=== PATIENT | female | born 1985 | race Caucasian/White ===

== ENCOUNTER → 2020-05-15 10:11 | Outpatient (CLI) | payer OTHER, SELFPAY ==
--- NOTE | ~2020-05-15 | XR_ITS ---
EXAMINATION: XR cervical spine min 6V EXAM DATE: 05/15/2020 10:40 INDICATION: M54.2 - Cervicalgia . Chronic neck pain. TECHNIQUE: Cervical spine frontal, lateral, lateral swimmers, submental vertex and open-mouth odonto id projections. Additional lateral flexion and lateral extension projections obtained. Bilateral obl ique projections also obtained. There are no prior studies for comparison. FINDINGS: There is mild reversal of the normal cervical lordosis which may be positional or spasm. T here is 2 mm anterolisthesis C4 on C5 on the flexion, 1-2 mm retrolisthesis C2 on C3, C3 on C4 and C4 on C5 on the extension projections. No more than mild cervical arthropathy, without appreciable neur al foraminal stenosis. There is no evidence of acute cervical fracture. The odontoid process is inta ct. Pre-dens space is normal. Prevertebral soft tissue is normal. There are no soft tissue abnorma lities identified. Vertebral body and disc heights are well-maintained. IMPRESSION: 1. Reversal of normal cervical lordosis. 2. Mild cervical arthropathy. Reviewed, dictated and finalized at location A. LE LOOM SETTER
== END ==
PROVIDERS: PCP Nurse Practitioner Family; Visit Provider Nurse Practitioner Family
DX: M54.2 Cervicalgia (principal)
CPT/HCPCS: 72052

== ENCOUNTER 2020-12-14 11:13 | Outpatient (CLI) | payer OTHER, SELFPAY ==
[2020-12-14 11:28] LABS: Hematocrit 37.7 % (37.0-47.0); Hemoglobin 12.6 g/dL (12.0-15.0); Mean Corpuscular HGB Conc 33.4 g/dl (32-36); Mean Corpuscular Hemoglobin 31.3 pg (26-34); Mean Corpuscular Volume 93.8 fl (80-100); Mean Platelet Volume 10.1 fl (7.4-10.4); Platelet Count Result 263 k/mm3 (150-375); Red Blood Count 4.02 M/mm3 (4.2-5.4); Red Cell Distribution Width 11.8 % (11.5-14.5); White Blood Count 5.7 K/mm3 (4.5-10.0)
[2020-12-14 12:39] LABS: Iron 66 ug/dL (37-170)
[2020-12-14 12:43] LABS: Alanine Aminotransferase 24 U/L (4-35); Alkaline Phosphatase 46 U/L (38-126); Anion Gap 11 mmol/L (8-16); Aspartate Amino Transferase 57 U/L (14-36); Bilirubin,Total 0.2 mg/dL (0.2-1.3); Blood Urea Nitrogen 12 mg/dL (7-17); Calcium 9.5 mg/dL (8.4-10.2); Carbon Dioxide 24 mmol/L (22-30); Chloride 107 mmol/L (98-107); Estimated Glomerular Filt Rate > 60; Glucose 65 mg/dL (65-110); Sodium 142 mmol/L (137-145)
[2020-12-14 12:48] LABS: Percent Iron Saturation 18 % (20-50)
[2020-12-14 13:47] LABS: Folic Acid > 20.0 ng/mL (2.76->20)
== END 2020-12-14 11:14 | disposition home or self-care (01) ==
LOC: ANHLAB 11:15
PROVIDERS: PCP Family Medicine; Visit Provider Internal Medicine Hematology & Oncology
DX: D50.0 Iron deficiency anemia secondary to blood loss (chronic) (principal)
CPT/HCPCS: 36415; 80053; 82607; 82728; 82746; 83540; 83550; 85027

== ENCOUNTER 2022-01-04 09:03 | Outpatient (CLI) | payer OTHER, SELFPAY ==
[2022-01-04 09:57] LABS: T4 Thyroxine 6.48 ug/dL (5.53-11.0)
[2022-01-04 10:47] LABS: Folic Acid 11.4 ng/mL (2.76->20)
== END 2022-01-04 09:04 | disposition home or self-care (01) ==
LOC: ANHLAB 09:04
PROVIDERS: PCP Family Medicine; Visit Provider Nurse Practitioner Family
DX: R79.89 Other specified abnormal findings of blood chemistry (principal); D64.9 Anemia, unspecified
CPT/HCPCS: 36415; 82607; 82746; 84436; 84443

== ENCOUNTER 2022-04-18 11:22 | Emergency (ER) | payer OTHER, SELFPAY ==
[2022-04-18 11:33] VITALS: BP 110/64; PULSE 107; RESP 16; TEMP 37.5; O2SAT 99
--- NOTE | 2022-04-18 11:42 | ED.URI ---
HPI - URI/Sore Throat General Chief Complaint: Upper Respiratory Infection Stated Complaint: sorethroat,bilateral ear pain Time Seen by Provider: 04/18/22 11:42 Source: patient and RN notes reviewed Mode of arrival: ambulatory Limitations: no limitations History of Present Illness HPI Narrative: 36 year old female presents with 2 day onset of sore throat with associated myalgia, chills, right ear pain. Swallow has become increasingly more painful and now feels sinus pressure. Has taken ibuprofen and tylenol with mild alleviation of symptoms. 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 Maintaining secretions, Denies difficulty swallowing, n/v/c/d, wheezing, or shortness of breath. MD elicited complaint: cough Related Data Home Medications Medication Instructions Recorded Confirmed ascorbic acid (vitamin C) 500 mg 500 mg PO DAILY 07/24/21 04/18/22 capsule cholecalciferol (vitamin D3) 25 25 mcg PO DAILY 07/24/21 11/13/21 mcg (1,000 unit) capsule cyanocobalamin (vitamin B-12) 25 50 mcg PO DAILY 07/24/21 11/13/21 mcg tablet ferrous sulfate 325 mg (65 mg 325 mg PO DAILY 07/24/21 04/18/22 iron) tablet omeprazole magnesium 20 mg 20 mg PO DAILY 11/13/21 04/18/22 tablet,delayed release (Prilosec OTC) Allergies Allergy/AdvReac Type Severity Reaction Status Date / Time cefaclor Allergy Unknown Hives Verified 04/18/22 11:42 Review of Systems Review of Systems: CONSTITUTIONAL: Endorses malaise, chills, sweats. Denies fever EYES: Denies visual changes, redness, or discharge ENT: Reports sinus pain and sore throat. Denies rhinorrhea or nasal congestion CARDIOVASCULAR: Denies chest pain, palpitations, edema RESPIRATORY: Reports cough. 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 BMI 22.0-22.9, adult BMI 23.0-23.9, adult Chlamydia Heart palpitations Heartburn Shoulder pain, left Tobacco abuse counseling Surgical History Surgical History History of breast augmentation (~2004) History of cholecystectomy (~2011) History of elective (09/10/11) spina bifida History of knee surgery (~2000) Family History Family History Grandparent Diabetes mellitus Family history of lung cancer Cerebrovascular accident maternal grandmother Sibling Diabetes mellitus brother Social History Social History Social History: yes Smoking packs per day: 0.50 Smoking cigarettes per day: 10.0 Years smoked: 22 Smoking pack-years: 11.00 Smoking status: Current every day smoker Tobacco type: cigarettes Second hand tobacco smoke exposure: Yes Alcohol intake: current Drinks per week: 0 Alcohol use details: 1-2 drinks per month Substance use: never Substance use type: does not use Living arrangements: with family Additional living arrangements comments: Occupation/Education: occupation 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 HEAD: Normocephalic EYES: conjunctivae clear ENT: Mucous membranes moist. R TM pearly solis with dull light; L TM pearly solis with displaced cone of light yet appropriate bony landmarks; no tragal tenderness. Oropharynx erythematous with mild purulent exudate, grade III tonsillar enlargement
== END 2022-04-18 12:05 | disposition home or self-care (01) ==
PROVIDERS: Emergency Provider Nurse Practitioner Family; PCP Family Medicine
DX: J02.0 Streptococcal pharyngitis (principal); F17.210 Nicotine dependence, cigarettes, uncomplicated; R12 Heartburn; Z85.828 Personal history of other malignant neoplasm of skin
CPT/HCPCS: 87880; 99213; G0463

== ENCOUNTER → 2023-03-24 10:43 | Outpatient (CLI) | payer OTHER, SELFPAY ==
--- NOTE | ~2023-03-24 | XR_ITS ---
XR chest 2V DATE: 03/24/2023 10:56 INDICATION: Tobacco use TECHNIQUE: PA and lateral views COMPARISON: 05/28/2018 2 view chest FINDINGS: Bilateral hyperinflation. No pulmonary infiltrate or consolidation, pleural effusion or pul monary vascular congestion or pneumothorax. Normal heart size. No hilar or mediastinal enlargement. Surgical clips, right upper quadrant, likely due to cholecystectomy. IMPRESSION: Bilateral hyperinflation; no active cardiopulmonary disease Reviewed, dictated and finalized at location B. LY DINNER SERVICE SPECIALIST
== END ==
PROVIDERS: PCP Nurse Practitioner Family; Visit Provider Nurse Practitioner Family
DX: Z72.0 Tobacco use (principal)
CPT/HCPCS: 71046

== ENCOUNTER 2023-04-05 15:01 | Emergency (ER) | payer OTHER, SELFPAY ==
--- NOTE | 2023-04-05 15:21 | ED.GENADULT ---
HPI - General Adult General Chief complaint: Upper Respiratory Infection Stated complaint: congestion,bilateral ear pain Time Seen by Provider: 04/05/23 15:27 Source: patient, RN notes reviewed and old records reviewed Mode of arrival: ambulatory Limitations: no limitations History of Present Illness HPI narrative: [age] year old female presents to the [facility] with complaints of sinus congestion, bilateral ear pain worse on left than right since Friday, 4 days. Patient denies any fevers. Patient is scheduled for a PFT testing and wants to make sure she is okay for testing Denies fevers Reports taking Sudafed, Mya-Th[place]od[place] and ibuprofen Reports quit smoking 2 weeks ago Related Data Home Medications Medication Instructions Recorded Confirmed ascorbic acid (vitamin C) 500 mg 500 mg PO DAILY 07/24/21 04/05/23 capsule cholecalciferol (vitamin D3) 25 25 mcg PO DAILY 07/24/21 04/05/23 mcg (1,000 unit) capsule cyanocobalamin (vitamin B-12) 25 50 mcg PO DAILY 07/24/21 04/05/23 mcg tablet ferrous sulfate 325 mg (65 mg 325 mg PO DAILY 07/24/21 04/05/23 iron) tablet Allergies Allergy/AdvReac Type Severity Reaction Status Date / Time cefaclor Allergy Unknown Hives Verified 04/05/23 15:43 Review of Systems Review of Systems: All systems reviewed & are unremarkable except as noted in HPI and below Constitutional: Constitutional: Reports no additional constitutional complaints Eyes: Eyes: Reports no additional eye complaints ENT: Reports as per HPI Cardiovascular: Cardiovascular: Reports no additional cardiovascular complaints, Denies chest pain and Denies dyspnea Respiratory: Respiratory: Reports no additional respiratory complaints, Denies chest congestion, Denies cough and Denies dyspnea Gastrointestinal: Gastrointestinal: Reports no additional gastrointestinal complaints, Denies abdominal pain, Denies nausea and Denies vomiting Musculoskeletal: Musculoskeletal: Reports no additional musculoskeletal complaints Integumentary/Breasts: Skin/Breast: Reports system reviewed and no additional complaints, except as docu Neurologic: Reports system reviewed and no additional complaints, except as documented Psychiatric: Psychiatric: Reports no additional psychiatric complaints Allergic/Immunologic: Allergic/Immunologic: Reports no additional allergic/immunologic complaints PMFSH Past Medical History Medical History Abnormal serum iron level 2017 iron infusion treatment 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 Mother No problems noted. Social History Social History Social History: yes Smoking packs per day: 0.50 Smoking cigarettes per day: 10.0 Years smoked: 22 Smoking pack-years: 11.00 Smoking status: Current every day smoker Tobacco type: cigarettes Second hand tobacco smoke exposure: Yes Alcohol intake: current Drinks per week: 0 Alcohol use details: 1-2 drinks per month Substance use: never Substance use type: does not use Do You Feel Safe in your Home?: Yes Lack of Transportation: No Lack of Food: Never True Current Housing: I Have Housing Concerned About Future Housing: No Diffic
[2023-04-05 15:29] VITALS: BP 110/71; PULSE 90; RESP 18; TEMP 36.6; O2SAT 99
== END 2023-04-05 15:58 | disposition home or self-care (01) ==
PROVIDERS: Emergency Provider Nurse Practitioner; PCP Family Medicine
DX: J06.9 Acute upper respiratory infection, unspecified (principal); H65.03 Acute serous otitis media, bilateral; F17.210 Nicotine dependence, cigarettes, uncomplicated; Z85.828 Personal history of other malignant neoplasm of skin
CPT/HCPCS: 99211; G0463

== ENCOUNTER 2023-04-21 10:34 | Outpatient (CLI) | payer OTHER, SELFPAY ==
--- NOTE | 2023-04-21 13:36 | WPDPFTINT ---
PFT Procedure Performed PFT Procedure Performed Plethysmography (Lung Vol) Diffusing Cap (DLCO) Flow Vol Loop Spirometry w/o Bronchodil PFT Interpretation This is a pulmonary function test with spirometry, plethysmography and diffusing capacity. The test was performed and results interpreted in accordance with the 2019 and 2005 ATS/ERS Task Force guidelines respectively using the Global Lung Function Initiative-2012 reference equations. Patient demonstrated good effort and cooperation. Reproducibility criteria were met. The quality of the spirometry maneuver was Grade A. Findings: Spirometry: The contour the inspiratory and expiratory flow tracing are normal. The FVC is 4.48 L, 112% predicted. The FEV1 is 3.24 L, 99% predicted. The FEV1: FVC ratio 72%. Plethysmography: The total lung capacity is 5.72 L, 106% predicted. The functional residual capacity is 3.39 L, 113% predicted. The residual volume is 1.16 L, 69% predicted. Diffusing capacity: The diffusing capacity unadjusted for hemoglobin and carboxyhemoglobin is 24.9, 100% predicted. The diffusing capacity adjusted for alveolar volume is 4.75, 102% predicted. Impression: The spirometry is normal without evidence of an obstructive abnormality. The lung volumes are normal. The diffusing capacity is normal. There are no prior studies for comparison
== END 2023-04-21 10:35 | disposition home or self-care (01) ==
LOC: ANHPFT 10:35
PROVIDERS: PCP Family Medicine; Visit Provider Nurse Practitioner Family
DX: Z72.0 Tobacco use (principal); R09.89 Other specified symptoms and signs involving the circulatory and respiratory systems
CPT/HCPCS: 94375; 94726; 94729

== ENCOUNTER 2023-08-16 11:26 | Emergency (ER) | payer OTHER, SELFPAY ==
--- NOTE | 2023-08-16 11:32 | ED.URI ---
HPI - URI/Sore Throat General Chief Complaint: Upper Respiratory Infection Stated Complaint: Sore Throat/Ear Pain Time Seen by Provider: 08/16/23 12:02 Source: patient and RN notes reviewed Mode of arrival: ambulatory Limitations: no limitations History of Present Illness HPI Narrative: 38-year-old female presents concern for sore throat, ear pain started yesterday. She reports a few days ago she had postnasal drainage for that has resolved. She reports headache. Denies stomachache, and nasal congestion, rhinorrhea, fever, body aches, chills, sweats. MD elicited complaint: sore throat Related Data Home Medications Medication Instructions Recorded Confirmed ascorbic acid (vitamin C) 500 mg 500 mg PO DAILY 07/24/21 04/05/23 capsule cholecalciferol (vitamin D3) 25 25 mcg PO DAILY 07/24/21 04/05/23 mcg (1,000 unit) capsule cyanocobalamin (vitamin B-12) 25 50 mcg PO DAILY 07/24/21 04/05/23 mcg tablet ferrous sulfate 325 mg (65 mg 325 mg PO DAILY 07/24/21 04/05/23 iron) tablet Allergies Allergy/AdvReac Type Severity Reaction Status Date / Time cefaclor Allergy Unknown Hives Verified 04/05/23 15:43 Review of Systems Review of Systems: CONSTITUTIONAL: Denies malaise, chills, sweats, or fever. EYES: Denies visual changes, redness, or discharge. ENT: Denies rhinorrhea, congestion, sinus pain. Reports otalgia and sore throat. CARDIOVASCULAR: Denies chest pain, palpitations, or edema. RESPIRATORY: Denies cough. Denies dyspnea. GASTROINTESTINAL: Denies abdominal pain, nausea, vomiting, diarrhea SKIN: Denies rash or itching. MUSCULOSKELETAL: Denies myalgia. NEUROLOGIC: Reports headache. 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 Mother No problems noted. Social History Social History Social History: yes Smoking packs per day: 0.50 Smoking cigarettes per day: 10.0 Years smoked: 22 Smoking pack-years: 11.00 Smoking status: Current every day smoker Tobacco type: cigarettes Second hand tobacco smoke exposure: Yes Alcohol intake: current Drinks per week: 0 Alcohol use details: 1-2 drinks per month Substance use: never Substance use type: does not use Do You Feel Safe in your Home?: Yes Lack of Transportation: No Lack of Food: Never True Current Housing: I Have Housing Concerned About Future Housing: No Difficulty Paying Gas/Electric Bills: No Difficulty Paying for Meds: No Currently Unemployed: No Education: Bachelor's Degree Difficulty w/ Childcare or Family Care: No Living arrangements: with family Additional living arrangements comments: Occupation/Education: occupation 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 There is
[2023-08-16 11:46] VITALS: BP 102/66; PULSE 79; RESP 16; TEMP 37; O2SAT 99
== END 2023-08-16 12:13 | disposition home or self-care (01) ==
PROVIDERS: Emergency Provider Nurse Practitioner; PCP Family Medicine
DX: J02.0 Streptococcal pharyngitis (principal); F17.210 Nicotine dependence, cigarettes, uncomplicated; R12 Heartburn; Z85.3 Personal history of malignant neoplasm of breast
CPT/HCPCS: 87880; 99213; G0463

== ENCOUNTER 2024-02-13 15:45 | Emergency (ER) | payer BC, SELFPAY ==
--- NOTE | ~2024-02-13 | XR_ITS ---
XR chest 2V Ordering provider: Isaac Aguilar APRN History: 38 years Female with . productive cough, chest tightness, sob . Comparison: March 24, 2023 FINDINGS: MEDIASTINUM: The cardiac silhouette is not enlarged. LUNGS: No effusions or pneumothorax. Opacification the right lung base laterally is seen suggestive of pneumonia. OTHER: No free air under the diaphragm. IMPRESSION: Right basal pneumonia. Reviewed, dictated and finalized at location A. TRIC FORK OPERATOR IMPRESSION: Right basal pneumonia.
[2024-02-13 15:56] VITALS: BP 103/70; PULSE 81; RESP 16; TEMP 37.1; O2SAT 100
--- NOTE | 2024-02-13 16:21 | ED_ITS ---
HPI - URI/Sore Throat General Chief Complaint: Upper Respiratory Infection Stated Complaint: COUGH / Congestion / bodyaches Time Seen by Provider: 02/13/24 16:00 Source: patient Mode of arrival: ambulatory Limitations: no limitations History of Present Illness HPI Narrative: Malathi is a 38-year-old female patient presenting to the clinic today with complaints of cough, body aches, and chest congestion x3 days. She reports she is also having some chest tightness and shortness of breath at times. Denies any fever or chills. States her cough is productive with yellow phlegm. States her son had walking pneumonia 1-2 weeks ago MD elicited complaint: sore throat and nasal congestion Related Data Home Medications Medication Instructions Recorded Confirmed ascorbic acid (vitamin C) 500 mg 500 mg PO DAILY 07/24/21 02/13/24 capsule cholecalciferol (vitamin D3) 25 25 mcg PO DAILY 07/24/21 02/13/24 mcg (1,000 unit) capsule cyanocobalamin (vitamin B-12) 25 50 mcg PO DAILY 07/24/21 02/13/24 mcg tablet ferrous sulfate 325 mg (65 mg 325 mg PO DAILY 07/24/21 02/13/24 iron) tablet sertraline 100 mg tablet 150 mg PO DAILY 08/16/23 02/13/24 Allergies Allergy/AdvReac Type Severity Reaction Status Date / Time cefaclor AdvReac Mild Hives Verified 08/16/23 12:14 Review of Systems Review of Systems: Pertinent positives per HPI. Patient denies any fever, chills, rash, headache, visual changes, dizziness, chest pain, palpitations, nausea, vomiting, diarrhea, constipation, abdominal pain, or any urinary issues. 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 Mother No problems noted. Social History Social History Social History: yes Smoking packs per day: 0.50 Smoking cigarettes per day: 10.0 Years smoked: 22 Smoking pack-years: 11.00 Smoking status: Current every day smoker Tobacco type: cigarettes Second hand tobacco smoke exposure: Yes Alcohol intake: current Drinks per week: 0 Alcohol use details: 1-2 drinks per month Substance use: never Substance use type: does not use Do You Feel Safe in your Home?: Yes Lack of Transportation: No Lack of Food: Never True Current Housing: I Have Housing Concerned About Future Housing: No Difficulty Paying Gas/Electric Bills: No Difficulty Paying for Meds: No Currently Unemployed: No Education: Bachelor's Degree Difficulty w/ Childcare or Family Care: No Living arrangements: with family Additional living arrangements comments: Occupation/Education: occupation 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 There is no relevant family history pertinent to the patient complaint. Exam Narrative: General: Well-developed, well nourished, in no apparent distress Head: Normocephalic, atraumatic Eyes: Pupils equally round and reactive to light bilaterally, EOM intact, sclera and conjunctive clear, no discharge, lids normal Ears: TMs intact and clear, ear canals clear, no drainage, grossly hearing normal. Nose: Nares patent, no discharge, no inflammation, no sinus tenderness. Mouth: Oral pharynx without lesions or masses, good dentition, MMM. Neck: Supple, trachea midline, no enlargement of anterior or posterior cervical nodes, no thyroid masses or goiter palpable. Cardio: Regular rate and rhythm, s1 and s2 normal, no murmur appreciated. Resp: Diminished in the lower bases otherwise clear, no rhonchi, rales, wheezing or rubs Course Course Emergency Course: Portions of this record may have been created with voice recognition software. Level of Care: Express Care Visit Vital Signs Vital signs: Vital Signs Temperature 37.1 C 02/13/24 15:56 Pulse Rate 81 02/13/24 15:56 Respiratory Rate 16 02/13/24 15:56 Blood Pressure 103/70 02/13/24 15:56 Pulse Oximetry 100 02/13/24 15:56 Oxygen Delivery Room Air 02/13/24 15:56 Temperature 37.1 C 02/13/24 15:56 Pulse Rate 81 02/13/24 15:56 Respiratory Rate 16 02/13/24 15:56 Blood Pressure 103/70 02/13/24 15:56 Pulse Oximetry 100 02/13/24 15:56 Oxygen Delivery Room Air 02/13/24 15:56 Vital signs reviewed MDM - URI/Sore Throat MDM Narrative Medical decision making narrative: At the time of visit patient is resting comfortably on the exam table. Patient appears to be nontoxic. Diagnostics: X-ray shows right lower lobe pneumonia. Plan: Patient has right lower lobe pneumonia. Prescription for Augmentin and azithromycin as well as an albuterol inhaler was sent to the pharmacy. Supportive measures were discussed with the patient and they voiced understanding discharge instructions and agrees to treatment plan. Return precautions reviewed Differential Diagnosis Differential diagnosis: Likely upper respiratory infection, otitis media, sinusitis, viral infection, bronchitis, influenza, pharyngitis and other (COVID) Imaging Data Radiologist's impression: ITS Impressions Chest X-Ray 02/13/24 16:29 IMPRESSION: Right basal pneumonia. Discharge Plan Discharge Clinical Impression: Right lower lobe pneumonia Patient Disposition: Home, Self-Care Condition: Stable Instructions: Antibiotic Form, Pneumonia (ED) Additional Instructions: Chest x-ray shows right basilar pneumonia Take prescription medications only as prescribed-Augmentin and azithromycin Increase fluids and stay well hydrated Tylenol/motrin for pain/fever Flonase and OTC antihistamines as directed Vicks vapor rub to open sinuses Sinus rinses for congestion Cepacol spray, cough drops, throat lozenges, warm tea with honey/lemon, gargle salt water to soothe throat BRAT diet for diarrhea Clear liquids x 24 hours then advance as tolerated for nausea/vomiting Go to the ED if you develop a worsening in your condition- high fever not controlled by Tylenol or Motrin, dehydration, weakness, lethargy, shortness of breath, or chest pain. Follow up with your PCP in 3-5 days if symptoms persist. Prescriptions: New azithromycin 250 mg tablet See Rx Instructions .ROUTE .COMPLEX Qty: 6 0RF Rx Instructions: For 250 mg dose pack: take 500 mg today (day 1), then 250 mg for 4 days (days 2-5) amoxicillin-pot clavulanate 875-125 mg tablet 1 tablet PO Q12H 7 Days Qty: 14 0RF albuterol sulfate 90 mcg/actuation HFA aerosol inhaler 2 puff inhalation Q4-6H PRN (Reason: shortness of breath or wheezing) 30 Days Qty: 8.5 0RF No Action sertraline 100 mg tablet 150 mg PO DAILY Rx Instructions: psych manages ferrous sulfate 325 mg (65 mg iron) tablet 325 mg PO DAILY cholecalciferol (vitamin D3) 25 mcg (1,000 unit) capsule 25 mcg PO DAILY cyanocobalamin (vitamin B-12) 25 mcg tablet 50 mcg PO DAILY ascorbic acid (vitamin C) 500 mg capsule 500 mg PO DAILY Follow-up/Referrals: Александр Michelle MD [Primary Care Provider] - Time of Disposition: 16:37 Quality NIHSS Nursing Documentation ED NIHSS nursing documentation: reviewed/agree
== END 2024-02-13 16:46 | disposition home or self-care (01) ==
PROVIDERS: Emergency Provider Nurse Practitioner Family; PCP Family Medicine
DX: J18.1 Lobar pneumonia, unspecified organism (principal); F17.210 Nicotine dependence, cigarettes, uncomplicated; R12 Heartburn; Z85.3 Personal history of malignant neoplasm of breast
CPT/HCPCS: 71046; 99213; G0463

== ENCOUNTER 2024-10-15 08:20 | Outpatient (CLI) | payer OTHER, SELFPAY ==
--- OUTSIDE RECORDS SUMMARY | 2024-10-15 08:29 | XMS_ITS | Clinical Summary ---
Author Organization [facility] Address [address] [place] [address] Care Team Providers Care Social Insurance Specialist Name Role Phone Александр Michelle MD Primary Care Provider [phone] Allergies Active Allergy Reactions Criticality Noted Date Comments Cefaclor Hives High 12/14/2020 Medications ALPRAZolam (XANAX) 0.5 mg tablet TAKE 1 TABLET BY MOUTH EVERY DAY NEEDED 11/23/2020 Active sertraline (ZOLOFT) 100 mg tablet TAKE 2 TABLETS BY MOUTH EVERY DAY IN THE MORNING 11/23/2020 Active COVID-19 test specimen collect Misc TEST DIRECTED 12/03/2020 Active omeprazole (PriLOSEC) 20 mg Capsule, Delayed Release(E.C.) Take 20 mg by mouth daily. Active Active Problems Problem Noted Date Diagnosed Date Vitamin B12 deficiency (non anemic) 01/08/2021 Elevated liver enzymes 01/08/2021 Iron deficiency anemia 12/14/2020 Family History Medical History Relation Name Comments Diabetes Brother 3 Asthma Daughter Healthy Son Relation Name Status Comments Brother 1 Alive Brother 2 Alive Brother 3 Alive Daughter Alive Father Alive Mother Alive Son Alive Social History Tobacco Use Types Packs/Day Years Used Date Smoking Tobacco: Every Day Smokeless Tobacco: Never Alcohol Use Standard Drinks/Week Comments Yes 0 (1 standard drink = 0.6 oz pur e alcohol) Comments No Sex and Gender Information Value Date Recorded Sex Assigned at Not on file Legal Sex Female 3:45 PM CDT Gender Identity Not on file Sexual Orientation Not on file Last Filed Vital Signs Vital Sign Reading Time Taken Comments Blood Pressure 104/64 12/14/2020 10:36 AM CDT Pulse 86 12/14/2020 10:36 AM CDT Temperature 36.9 C (98.5 F) 12/14/2020 10:36 AM CDT Respiratory Rate - - Oxygen Saturation 97% 12/14/2020 10:36 AM CDT Inhaled Oxygen Concentration - - Weight 66 kg (145 lb 9.6 oz) 12/14/2020 10:36 AM CDT Height 167.6 cm (5' 6) 12/14/2020 10:36 AM CDT Body Mass Index 23.5 12/14/2020 10:36 AM CDT Plan of Treatment Health Maintenance Due Date Last Done Comments HPV VACCINES (1 - 3-dose series) 06/28/1998 HEPATITIS B VACCINES (1 of 3 - 19+ 3-dose series) 06/28/2002 07/02/2016, 12/21/2015, 11/16/2015 HPV/Cotest (21-29) 06/28/2004 CERVICAL CANCER SCREENING 06/28/2013 HPV/Cotest (30-65) 06/28/2013 PAP SMEAR 06/28/2013 BREAST CANCER SCREENING 2023 COVID-19 Vaccine (4 - 2023-2 5 season) 2023 03/21/2021, 04/11/2020, 03/14/2020 INFLUENZA VACCINE (#1) 2024 12/03/2016 DTAP/TDAP/TD VACCINES (2 - T d or Tdap) 12/04/2025 12/05/2015 Insurance Care Teams Social Insurance Specialist Relationship Specialty Start Date End Date Александр Michelle MD [address] [place] [address] PCP - General Family Practice 12/14/20
--- OUTSIDE RECORDS SUMMARY | 2024-10-15 08:29 | XMS_ITS | Clinical Summary ---
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 Gender Identity Not on file Sexual Orientation Not on file Plan of Treatment Health Maintenance Due Date Last Done Comments Hepatitis C Virus (HCV) Screening 1985 Human Papillomavirus (HPV) Immunization (1 - 3-dose series) 06/28/1998 Pap Smear 06/28/2004 Cervical Cancer Screening (CCS) 06/28/2013 HPV/Cotest 06/28/2013 SARS-COV-2 Immunization ( season) 2023 03/21/2021, 04/11/2020, 03/14/2020 Influenza Immunization (#1) 2024 112 03/2020, 12/23/2018, 12/03/2016 Respiratory Syncytial Virus (RSV) Immunization (Adult) (1 - 1-dose 75+ series) 06/28/2058 DTaP/Tdap/Td Immunization Discontinued 12/05/2015 TdaP Immunization Completed 12/05/2015 Hepatitis B Immunization Completed 017, 12/21/2015, 11/16/2015 Meningococcal Immunization (ACWY) Aged Out No longer eligible based on patient's age to complete this topic Pneumococcal Immunization Combined Aged Out No longer eligible based on patient's age to complete this topic Rotavirus Immunization Aged Out No lo nger eligible based on patient's age to complete this topic
--- OUTSIDE RECORDS SUMMARY | 2024-10-15 08:29 | XMS_ITS | Encounter Summary ---
Author Organization [facility] Address [address] [place] [address] Care Team Providers Care Butting Saw Operator Name Role Phone Ruben Baker MD Primary Care Provider [phone] Ruben Baker MD Primary Care Provider [phone] Encounter Details Date Type Department Care Team (Late st Contact Info) Description 04/01/2013 Telephone [facility] [address] [place] [address] Jenni Murry, [facility] Care [place] [address] [place] [address] Social History Tobacco Use Types Packs/Day Years Used Date Smoking Tobacco: Never Assessed Comments Yes Sex and Gender Information Value Date Recorded Sex Assigned at Not on file 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
--- OUTSIDE RECORDS SUMMARY | 2024-10-15 08:29 | XMS_ITS | Clinical Summary ---
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
--- OUTSIDE RECORDS SUMMARY | 2024-10-15 08:29 | XMS_ITS | Clinical Summary ---
Author Organization [facility] Address [address] [place] [address] Care Team Providers Care Quad Stayer Name Role Phone Ruben Baker MD Primary Care Provider [phone] Source Comments [facility],non-owned Affiliates and Associated Physician Practices is amultiple site organization consisting of ambulatory clinics and hospital sitesin [place], [place], [place] and [place]. This disclosure is being madepursuant to the Care Everywhere program and may not contain all information available regarding this patient. Last updated 17.[facility] EpicTopic Allergies Active Allergy Reactions Criticality Noted Date Comments Cefaclor 09/02/2011 Medications * Be aware that medications may not be up to date on this document. Alwaysverify current medications with the patient. ALPRAZolam (XANAX) 0.5 MG tablet Take 0.5 mg by mouth 3 times daily as needed. Active folic acid (FOLVITE) 1 MG tablet Take 1 mg by mouth once daily. Active sertraline (ZOLOFT) 100 MG tablet Take 100 mg by mouth once daily. Active Active Problems Patient Care Coordination No te Formatting of this note migh t be different from the original. 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, antepartum, suspected 09/02/2011 03/29/2013 Thick nuchal skin fold in fetus 09/02/2011 03/29/2013 Immunizations Immunization Administration Dates Next Due Rho D Immune Globulin 09/02/2011 Social History Tobacco Use Types Packs/Day Years Used Date Smoking Tobacco: Never Assessed Comments No Sex and Gender Information Value Date Recorded Sex Assigned at Not on file 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 Gender Identity Not on file Sexual Orientation Not on file Plan of Treatment Health Maintenance Due Date Last Done Comments LIPID TESTING 1985 MAMMOGRAM 1983 HIV SCREENING 06/28/1998 HEPATITIS C SCREENING 06/24/2001 DTAP/TDAP/TD VACCINES (1 - Tdap) 06/28/2002 HEPATITIS B VACCINE (1 of 3 - 19+ 3-dose series) 06/28/2002 HPV VACCINE (1 - 3-dose SCDM series) 06/28/2010 COVID-19 VACCINE (1 - 2023-2 5 season) 2023 DEPRESSION SCREENING 03/17/2024 INFLUENZA VACCINE (#1) 2024 ZOSTER VACCINE (1 of 2) 06/28/2033 HIB VACCINE Aged Out No longer eligi ble based on patient's age to complete this topic MENINGOCOCCAL (Group B) VACC INE SHARED DECISION-MAKING Aged Out No longer eligibl e based on patient's age to complete this topic MENINGOCOCCAL GROUPS A/C/Y/W VACCINE Aged Out No longer eligible b ased on patient's age to complete this topic PNEUMOCOCCAL VACCINE Aged Out No long er eligible based on patient's age to complete this topic Insurance [facility] [place] [address] Care Teams Quad Stayer Relationship Specialty Start Date End Date Ruben Baker MD PCP - General 11/18/17
--- OUTSIDE RECORDS SUMMARY | 2024-10-15 08:29 | XMS_ITS | Referral Summary ---
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
--- OUTSIDE RECORDS SUMMARY | 2024-10-15 08:29 | XMS_ITS | Patient Health Record ---
Author Organization [facility] [employer] Address [address] [place] [address] Care Team Providers Care Director Of Patient Safety Name Role Phone Miguel Angel AMEZCUA, Александр Primary Care Provider Ana Brown Unavailable [phone] Allergies Allergen (clinical drug ingredient) Drug/Non Drug Allergy documented on EMR Reaction Allergy Type Onset Date Status cefaclor CECLOR (uncoded) Unknown Allergy 07/03/2023 Ac tive Reason For Referral No Information Medications Medication SIG (Take, Route, Fr equency, Duration) Notes Start Date End Date Status Sertraline HCl 50 MG 1 tablet Orally Onc e a day; Duration: 90 days 04/30/2024 Active Sertraline HCl 100 MG 1 tablet Oral Once a day; Duration: 90 days 07/03/2023 Active Immunizations Vaccine Route Administration Date Status Comme nts Influenza virus vaccine, quadrivalent (IIV4), split virus, 0.25 mL dosage Unknown 12/15/2017 Administered Influenza virus vaccine, quadrivalent (IIV4), split virus, 0.25 mL dosage Unknown 12/15/2018 Administered Influenza virus vaccine, quadrivalent (IIV4), split virus, 0.25 mL dosage Unknown 01/15/2021 Administered Influenza, injectable, MDCK, preservative free Unknown 12/23/2018 Administered Moderna Covid-19 Vaccine 1st dose Unknown 03/14/2020 Ad ministered Moderna Covid-19 Vaccine 1st dose Unknown 04/11/2020 Ad ministered Moderna Covid-19 Vaccine 1st dose Unknown 03/21/2021 Ad ministered Social History Tobacco Use: Social History Observation Description Date Details (start date - stop date) Former Smoker NA - 03/24/2023 Sex Assigned At : Social History Observation Description Sex Assigned At Female Tobacco Control (Standard) Question Answer Notes Tobacco use: Former smoker When did you stop smoking? 03/24/2023 How long has it been since you last smoked? 6-12 months AUDIT-C (Standard) Question Answer Notes Did you have a drink contain ing alcohol in the past year? Yes How often did you have six o r more drinks on one occasion in the past year? Less than monthly (1 point) How many drinks did you have on a typical day when you were drinking in the past year? 3 or 4 drinks (1 point) How often did you have a dri nk containing alcohol in the past year? Monthly or less (1 point) Problems Problem Type SNOMED Code ICD Code Onset Dates Problem Status W/U Status Risk Notes Problem Generalized anxiety disorder (53074026) Generalized anxiety disorder (F41.1) 4 Active confirmed Problem Tobacco use (624312196) Tobacco use (Z72.0) 3 Active confirmed Problem Obsessive compulsive disorder (345726699) Other obsessive-compu lsive disorder (F42.8) 4 Active confirmed Vital Signs Heart Rate 81 /min 04/30/2024 Height-cm 167.64 cm 04/30/2024 Blood pressure diastolic 70 mm Hg 04/30/2024 Weight-kg 62.6 kg 04/30/2024 Height 66.00 in 04/30/2024 Blood pressure systolic 108 mm Hg 04/30/2024 Weight 138 lbs 04/30/2024 BMI 22.27 kg/m2 04/30/2024 Encounters Encounter Location Date Provider Diagnosis [facility] [place] [address] [facility] [address] [place] [address] 01/01/2024 Ana Hoffman [facility] [facility] [place] [address] [facility] [address] [place] [address] 04/30/2024 Ana Hoffman Generalized anxiety disorder F41.1 and Other obsessive-compulsive disorder F42.8 [facility] [facility] [address] [facility] [address] [place] [address] 01/01/2024 Ana Hoffman [facility] [facility] [address] [facility] [address] [place] [address] 07/13/2024 Ana Hoffman Assessments Encounter Date Diagnosis (ICD Code) Assessment Notes Treatment Notes Treatment Clinical Notes Section Notes 04/30/2024 Generalized anxiety disorder (ICD-10 - F41.1) 1. Anxiety Sertraline 150 mg daily 2. OCD Sertraline 150 mg daily Schedule to see SUPERVISOR CASE LOADING- PAP Labs, Ablation discuss and discuss low libdo issues http_s://www.nimh. nih.gov/health/top ics/mental-health- medications http_s://www.heaven. org/Fjean-Gbmvoz-A llness/Treatments/ Kerlpv-Fvxuny-Hxri cations Patient educated on all medications including potential benefits, side effects, risks. Educated on proper dosing schedule and importance of compliance educated on all medications, benefits, side effects and risk, and educated on depression, anxiety, and ADHD, mood d/o and educated on compliance of medications, metabolic and movement d/o education appointment's, continue therapy discussion with patient about course of treatment and patient instructions. education on serotonin syndrome Discussed and educated pt regarding benzodiazepines are generally not intended for prolonged use and that use can cause tolerance, dependence, depression, and associated memory issues including dementias (this list is not exhaustive). Benzodiazepine use is generally not recommended concurrently with pain medications and/or other controlled substances educated on all medications, benefits, side effects and risk, and educated on depression, anxiety, and ADHD, mood d/o and educated on compliance of medications, metabolic and movement d/o education appointment is, continue therapy discussion with patient about course of treatment and patient instructions. education on serotonin syndrome SSRI/SNRI side effects discussed including but not limited to, gastric upset, nausea, vomiting, diarrhea and/or constipation, weight changes, sexual side effects including loss of libido, increased suicidal thoughts/behaviors in children and young adults, and serotonin syndrome. Medication Management and Follow-Up - Plan: - Schedule follow-up appointments every 1-3 months to monitor the patient's response to the medication regimen. - Reinforce the importance of avoiding recreational drug use due to potential neurotoxicity and interactions with prescribed medications. 04/30/2024 Other obsessive-compu lsive disorder (ICD-10 - F42.8) 1. Anxiety Sertraline 150 mg daily 2. OCD Sertraline 150 mg daily Schedule to see SUPERVISOR CASE LOADING- PAP Labs, Ablation discuss and discuss low libdo issues http_s://www.nim. nih.gov/health/top ics/mental-health- medications http_s://www.heaven. org/Cdwdh-Srgzou-M llness/Treatments/ Inhvut-Ppuiii-Ikwj cations Patient educated on all medications including potential benefits, side effects, risks. Educated on proper dosing schedule and importance of compliance educated on all medications, benefits, side effects and risk, and educated on depression, anxiety, and ADHD, mood d/o and educated on compliance of medications, metabolic and movement d/o education appointment's, continue therapy discussion with patient about course of treatment and patient instructions. education on serotonin syndrome Discussed and educated pt regarding benzodiazepines are generally not intended for prolonged use and that use can cause tolerance, dependence, depression, and associated memory issues including dementias (this list is not exhaustive). Benzodiazepine use is generally not recommended concurrently with pain medications and/or other controlled substances educated on all medications, benefits, side effects and risk, and educated on depression, anxiety, and ADHD, mood d/o and educated on compliance of medications, metabolic and movement d/o education appointment is, continue therapy discussion with patient about course of treatment and patient instructions. education on serotonin syndrome SSRI/SNRI side effects discussed including but not limited to, gastric upset, nausea, vomiting, diarrhea and/or constipation, weight changes, sexual side effects including loss of libido, increased suicidal thoughts/behaviors in children and young adults, and serotonin syndrome. Medication Management and Follow-Up - Plan: - Schedule follow-up appointments every 1-3 months to monitor the patient's response to the medication regimen. - Reinforce the importance of avoiding recreational drug use due to potential neurotoxicity and interactions with prescribed medications. Plan Of Treatment No Information Insurance Providers Payer Name Payer Address Payer Phone Subscriber Number Group Number Insured Name Patient Relationship to Insured Coverage Start Date Coverage End Date [facility] [address] [place] [address] [id number] EDMAR PAN Self - patient is the insured 4 [employer] [address] [place] [address] [id number] EDMAR PAN Self - patient is the insured 4 Medical (General) History Medical History History ICD Code Problems: Generalized anxiety disorder Long-term drug therapy Obsessive-compulsive disorder Tobacco user , Past Psychiatric History: Anxiety Disord er,Panic Disorder abdominal aortic aneurysm: No atrial fibrillation: No chronic fatigue syndrome: No essential tremor: No hyperlipidemia: No hypertension: No Parkinson's disease: No restless leg syndrome: No stroke: No subdural hematoma: No type 1 diabetes mellitus: No type 2 diabetes mellitus: No vitamin B12 deficiency: Yes vitamin D deficiency: Yes Surgical History Surgery Date(Month/Year) Breast surgery () 03/17/2005 Removal of gallbladder (61444) 2
[2024-10-15 09:20] LABS: Hematocrit 36.6 % (37.0-47.0); Hemoglobin 11.7 g/dL (12.0-15.0); Mean Corpuscular HGB Conc 32.0 g/dl (32-36); Mean Corpuscular Hemoglobin 28.9 pg (26-34); Mean Corpuscular Volume 90.4 fl (80-100); Platelet Count Result 250 k/mm3 (150-375); Red Blood Count 4.05 M/mm3 (4.2-5.4); White Blood Count 5.0 K/mm3 (4.5-10.0)
[2024-10-15 09:40] LABS: Hemoglobin A1C 5.2 % (<5.7)
[2024-10-15 09:41] LABS: Alanine Aminotransferase 23 U/L (6-35); Albumin Level 4.5 g/dL (3.5-5.1); Alkaline Phosphatase 41 U/L (38-126); Anion Gap 8 mmol/L (4-12); Aspartate Amino Transferase 31 U/L (14-36); Bilirubin,Total 0.4 mg/dL (0.2-1.3); Blood Urea Nitrogen 14 mg/dL (7-17); Calcium 9.3 mg/dL (8.4-10.2); Carbon Dioxide 23 mmol/L (22-30); Chloride 109 mmol/L (98-107); Cholesterol 165 mg/dL (0-200); Estimated Glomerular Filt Rate > 60; Glucose 83 mg/dL (65-110); HDL Direct 75 mg/dL; Potassium 4.2 mmol/L (3.4-5.0); Sodium 140 mmol/L (137-145); Total Protein 7.6 g/dL (6.3-8.2); Triglycerides 44 mg/dL (<150)
[2024-10-15 09:43] LABS: Iron 67 ug/dL (37-170)
[2024-10-15 09:52] LABS: Percent Iron Saturation 16 % (20-50)
[2024-10-15 10:16] LABS: Thyroid Stimulating Hormone 2.020 uIU/mL (0.465-4.680)
[2024-10-15 10:52] LABS: Vitamin B12 584.0 pg/mL (239-931)
== END 2024-10-15 08:21 | disposition home or self-care (01) ==
LOC: ANHLAB 08:24
PROVIDERS: PCP Family Medicine; Visit Provider Nurse Practitioner Family
DX: F41.9 Anxiety disorder, unspecified (principal); Z13.220 Encounter for screening for lipoid disorders; Z13.1 Encounter for screening for diabetes mellitus; E55.9 Vitamin D deficiency, unspecified; D64.9 Anemia, unspecified; E16.2 Hypoglycemia, unspecified
CPT/HCPCS: 36415; 80053; 80061; 82306; 82607; 82746; 83036; 83540; 83550; 84443; 85027